=== PATIENT | female | born 1945 | race Caucasian/White ===

== ENCOUNTER → 2016-12-06 | Outpatient (CLI) | payer MEDICARE, OTHER ==
[~2016-12-06] MED LIST: AMLO10TA2 PO; ASPI-496 PO; CALCIUM/MAGNESIUM PO; FLUT16SP2; LEVO50TA5 PO; SERT50TA5 PO; VITAMIN D-3 PO
== END | disposition home or self-care (01) ==
LOC: ROC 14:56
PROVIDERS: ATTEND Radiology Radiation Oncology
DX: C50.411 Malignant neoplasm of upper-outer quadrant of right female breast (principal)
CPT/HCPCS: G0463

== ENCOUNTER → 2017-08-29 | Outpatient (CLI) | payer MEDICARE, OTHER | END | disposition home or self-care (01) | LOC: CFH 10:46 | PROVIDERS: ATTEND Physician Assistant Medical | DX: R06.02 Shortness of breath (principal); R53.83 Other fatigue; R05 Cough | CPT/HCPCS: 71046 ==

== ENCOUNTER → 2017-10-18 | Outpatient (CLI) | payer MEDICARE, OTHER | END | disposition home or self-care (01) | LOC: CFH 10:01 | PROVIDERS: ATTEND Radiology Radiation Oncology | DX: Z12.31 Encounter for screening mammogram for malignant neoplasm of breast (principal); R92.1 Mammographic calcification found on diagnostic imaging of breast | CPT/HCPCS: 77067 ==

== ENCOUNTER → 2017-10-19 | Outpatient (CLI) | payer MEDICARE, OTHER | END | disposition home or self-care (01) | LOC: ROC 09:09 | PROVIDERS: ATTEND Radiology Radiation Oncology | DX: C50.411 Malignant neoplasm of upper-outer quadrant of right female breast (principal) | CPT/HCPCS: G0463 ==

== ENCOUNTER → 2017-10-30 | Outpatient (CLI) | payer MEDICARE, OTHER ==
[~2017-10-30] MED LIST changes: +OMNIPAQUE 350 MG/ML, 75ML BOTTLE ONE
== END ==
LOC: CFH 08:25
PROVIDERS: ATTEND Radiology Radiation Oncology
DX: K76.89 Other specified diseases of liver (principal); I10 Essential (primary) hypertension; Z85.3 Personal history of malignant neoplasm of breast
CPT/HCPCS: 71260; Q9967

== ENCOUNTER → 2018-01-09 | Outpatient (CLI) | payer MEDICARE, OTHER ==
[~2018-01-09] MED LIST changes: -OMNIPAQUE 350 MG/ML, 75ML BOTTLE ONE
== END | disposition home or self-care (01) ==
LOC: RAD 08:50
PROVIDERS: ATTEND Internal Medicine Critical Care Medicine
DX: I82.409 Acute embolism and thrombosis of unspecified deep veins of unspecified lower extremity (principal); M79.604 Pain in right leg; M79.605 Pain in left leg; R60.0 Localized edema; R06.02 Shortness of breath
CPT/HCPCS: 71250; 93970

== ENCOUNTER → 2018-10-21 | Outpatient (CLI) | payer MEDICARE, OTHER ==
[~2018-10-21] MED LIST changes: -AMLO10TA2 PO; +AMLO10TA8 PO; +SERT50TA28 PO; -SERT50TA5 PO
== END | disposition home or self-care (01) ==
LOC: CFH 08:28
PROVIDERS: ATTEND Radiology Radiation Oncology
DX: Z12.31 Encounter for screening mammogram for malignant neoplasm of breast (principal); Z85.3 Personal history of malignant neoplasm of breast; Z98.82 Breast implant status
CPT/HCPCS: 77063; 77067

== ENCOUNTER → 2018-11-13 | Outpatient (CLI) | payer MEDICARE, OTHER | END | disposition home or self-care (01) | LOC: ROC 08:39 | PROVIDERS: ATTEND Radiology Radiation Oncology | DX: Z08 Encounter for follow-up examination after completed treatment for malignant neoplasm (principal); Z85.3 Personal history of malignant neoplasm of breast; Z79.82 Long term (current) use of aspirin; Z79.899 Other long term (current) drug therapy; Z88.1 Allergy status to other antibiotic agents; Z88.8 Allergy status to other drugs, medicaments and biological substances; Z92.3 Personal history of irradiation | CPT/HCPCS: G0463 ==

== ENCOUNTER → 2019-10-23 | Outpatient (CLI) | payer MEDICARE, OTHER | END | disposition home or self-care (01) | LOC: CFH 08:20 | PROVIDERS: ATTEND Radiology Radiation Oncology | DX: Z12.31 Encounter for screening mammogram for malignant neoplasm of breast (principal); Z85.3 Personal history of malignant neoplasm of breast | CPT/HCPCS: 77063; 77067 ==

== ENCOUNTER 2019-10-30 08:22 | Outpatient (CLI) | payer MEDICARE, OTHER | END 2019-10-30 23:59 | disposition home or self-care (01) | LOC: ROC 08:22 | PROVIDERS: ATTEND Radiology Radiation Oncology | DX: C50.411 Malignant neoplasm of upper-outer quadrant of right female breast (principal) | CPT/HCPCS: G0463 ==

== ENCOUNTER → 2020-10-25 | Outpatient (CLI) | payer MEDICARE, OTHER ==
[~2020-10-25] MED LIST changes: +AMLO-211 PO; -AMLO10TA8 PO
== END | disposition home or self-care (01) ==
LOC: CFH 10:14
PROVIDERS: ATTEND Radiology Radiation Oncology
DX: Z12.31 Encounter for screening mammogram for malignant neoplasm of breast (principal)
CPT/HCPCS: 77063; 77067

== ENCOUNTER 2020-10-29 07:21 | Outpatient (CLI) | payer MEDICARE, OTHER | END 2020-10-29 23:59 | disposition home or self-care (01) | LOC: ROC 07:21 | PROVIDERS: ATTEND Radiology Radiation Oncology | DX: Z08 Encounter for follow-up examination after completed treatment for malignant neoplasm (principal); Z85.3 Personal history of malignant neoplasm of breast | CPT/HCPCS: G0463 ==

== ENCOUNTER → 2020-11-04 | Outpatient (CLI) | payer MEDICARE, OTHER | END | disposition home or self-care (01) | LOC: CFH 13:27 | PROVIDERS: ATTEND Radiology Radiation Oncology | DX: N63.21 Unspecified lump in the left breast, upper outer quadrant (principal); R92.2 Inconclusive mammogram | CPT/HCPCS: 76642; 77065 ==

== ENCOUNTER 2020-11-18 07:13 | Outpatient (CLI) | payer MEDICARE, OTHER ==
[2020-11-18] MEDS ORDERED: LIDOCAINE 1%, 20ML ONE (08:40)
[2020-11-18] MEDS ORDERED: LIDOCAINE 1%-EPI 1:100K, 20ML ONE (08:40)
[2020-11-18] MEDS ORDERED: SODIUM BICARBONATE 4.2%, 5ML ONE (08:40)
== END 2020-11-18 23:59 | disposition home or self-care (01) ==
LOC: CFH 07:13
PROVIDERS: ATTEND Radiology Radiation Oncology
DX: N63.21 Unspecified lump in the left breast, upper outer quadrant (principal); C50.412 Malignant neoplasm of upper-outer quadrant of left female breast; Z17.0 Estrogen receptor positive status [ER+]
CPT/HCPCS: 19083; 88305; 88360; 77065

== ENCOUNTER 2020-12-14 07:30 | Outpatient (CLI) | payer MEDICARE, OTHER ==
[2020-12-14] MEDS ORDERED: LIDOCAINE 1%-EPI 1:100K, 20ML ONE (09:38)
[2020-12-14] MEDS ORDERED: SODIUM BICARBONATE 4.0%, 5ML ONE (09:38)
== END 2020-12-14 23:59 | disposition home or self-care (01) ==
LOC: CFH 07:30
PROVIDERS: ATTEND Surgery
DX: C50.412 Malignant neoplasm of upper-outer quadrant of left female breast (principal)
CPT/HCPCS: 19285; 77065

== ENCOUNTER → 2020-12-24 | Outpatient (CLI) | payer MEDICARE, OTHER ==
[~2020-12-24] MED LIST changes: +ATOR20TA37 PO; +CHOL500015 PO; +EVE1000C3 PO; -FLUT16SP2; +FLUT16SP2 NS; +LEVO75TA5 PO; +LIOT5TAB11 PO; +LORA-702 PO; +SPIRULINA PO; +TURMERIC CURCUMIN PO; +UBID100C24 PO; +[UNRECOGNIZED DRUG - CODE] PO; +prebiotic/probiotic PO
== END | disposition home or self-care (01) ==
LOC: STAR 13:59
PROVIDERS: ATTEND Surgery
DX: Z01.812 Encounter for preprocedural laboratory examination (principal); C50.412 Malignant neoplasm of upper-outer quadrant of left female breast; I44.4 Left anterior fascicular block; R94.31 Abnormal electrocardiogram [ECG] [EKG]
CPT/HCPCS: 93005

== ENCOUNTER 2020-12-30 09:16 | Day surgery (SDC) | payer MEDICARE, OTHER ==
[~2020-12-30] VITALS: Ht 170.2 cm; Wt 76.9 kg
[~2020-12-30 09:16] MED LIST changes: +BUPIVACAINE/PF 0.5% ONE; +EPINEPHRINE 1 MG/ML, 1ML ONE; +ISOSULFAN BLUE 10 MG/ML, 5ML IV ONE
[2020-12-30 09:59] VITALS: BP 131/80
[2020-12-30] MEDS ORDERED: CHLORHEXIDINE 15 ML UDC PO ONE (10:00)
[2020-12-30] MEDS ORDERED: LACTATED RINGERS 1,000 ML IV SCH (10:00)
[2020-12-30] MEDS ORDERED: hydrALAzine 20 MG/ML, 1ML IV PRN (14:00)
[2020-12-30] MEDS ORDERED: OXYcodone 5 MG/5 ML ORAL.SOL UDC PO PRN (14:00)
[2020-12-30] MEDS ORDERED: ONDANSETRON 2MG/ML, 2ML IVPush PRN (14:00)
[2020-12-30] MEDS ORDERED: ACETAMINOPHEN 325 MG TABLET PO PRN (14:00)
[2020-12-30] MEDS ORDERED: FENTANYL PF 100 MCG/2ML IV PRN (14:00)
[2020-12-30] MEDS ORDERED: morphine SULFATE 10 MG/ML, 1ML IVPush PRN (14:00)
[2020-12-30] MEDS ORDERED: PROMETHAZINE 25 MG/ML, 1ML IVPush PRN (14:00)
[2020-12-30] MEDS ORDERED: LABETALOL 5MG/ML, 20ML IV PRN (14:00)
[2020-12-30] MEDS ORDERED: FENTANYL PF 250 MCG/5ML ONE (14:10)
[2020-12-30] MEDS ORDERED: MIDAZOLAM 1 MG/ML, 2ML ONE (14:10)
[2020-12-30] MEDS ORDERED: CLINDAMYCIN 150 MG/ML, 6ML ONE (14:26)
[2020-12-30] MEDS ORDERED: DEXAMETHASONE 4 MG/ML, 1ML ONE (14:35)
[2020-12-30] MEDS ORDERED: ONDANSETRON 2MG/ML, 2ML ONE (15:04)
[2020-12-30] MEDS ORDERED: PROPOFOL 10 MG/ML, 20ML ONE (15:04)
[2020-12-30] MEDS ORDERED: KETOROLAC 30 MG/1 ML ONE (15:04)
[2020-12-30] MEDS ORDERED: ONDA4TAB7 PO (16:32)
[2020-12-30] MEDS ORDERED: HYDR-2214 PO (16:32)
== END 2020-12-30 19:15 | disposition home or self-care (01) ==
LOC: OUT 09:16 → EDSTATUS 10:00 → OUT 19:15
PROVIDERS: ATTEND Surgery
DX: C50.412 Malignant neoplasm of upper-outer quadrant of left female breast (principal); F32.9 Major depressive disorder, single episode, unspecified; E03.9 Hypothyroidism, unspecified; Z17.0 Estrogen receptor positive status [ER+]; Z20.822 Contact with and (suspected) exposure to COVID-19; Z79.82 Long term (current) use of aspirin; Z79.890 Hormone replacement therapy; Z79.899 Other long term (current) drug therapy; Z87.891 Personal history of nicotine dependence; Z88.8 Allergy status to other drugs, medicaments and biological substances; Z80.49 Family history of malignant neoplasm of other genital organs
CPT/HCPCS: 19301; 38525; 38792; 76098; 88307; 88329; 88333; A9541; J0171; J1100; J1885; J2250; J2405; J2704; J3010; J7120; U0003; U0005

== ENCOUNTER → 2021-02-22 | Outpatient (CLI) | payer MEDICARE, OTHER ==
[~2021-02-22] MED LIST changes: -BUPIVACAINE/PF 0.5% ONE; -EPINEPHRINE 1 MG/ML, 1ML ONE; +HYDR-2214 PO; -ISOSULFAN BLUE 10 MG/ML, 5ML IV ONE; +ONDA4TAB7 PO
== END | disposition home or self-care (01) ==
LOC: CFH 10:16
PROVIDERS: ATTEND Internal Medicine Hematology & Oncology
DX: C50.411 Malignant neoplasm of upper-outer quadrant of right female breast (principal); C50.412 Malignant neoplasm of upper-outer quadrant of left female breast; M85.88 Other specified disorders of bone density and structure, other site; M85.89 Other specified disorders of bone density and structure, multiple sites
CPT/HCPCS: 77080

== ENCOUNTER → 2021-02-28 | Outpatient (CLI) | payer MEDICARE, OTHER | END | disposition home or self-care (01) | LOC: ROC 07:33 | PROVIDERS: ATTEND Radiology Radiation Oncology | DX: Z08 Encounter for follow-up examination after completed treatment for malignant neoplasm (principal); Z85.3 Personal history of malignant neoplasm of breast | CPT/HCPCS: G0463 ==